=== PATIENT | female | born 1995 | race Caucasian/White ===

== ENCOUNTER 2016-03-30 | Outpatient (CLI) | END 2016-03-30 00:01 | disposition critical access hospital (66) | CPT/HCPCS: A0425; A0429 ==

== ENCOUNTER 2016-03-30 00:22 | Emergency (ER) | payer OTHER ==
[2016-03-30] MEDS ORDERED: SODIUM CHLORIDE 0.9% 1,000 ML IV ONE (00:36)
== END 2016-03-30 02:30 | disposition home or self-care (01) ==
DX: T62.0X1A Toxic effect of ingested mushrooms, accidental (unintentional), initial encounter (principal); R68.2 Dry mouth, unspecified; R00.2 Palpitations; F41.9 Anxiety disorder, unspecified